=== PATIENT | female | born 2000 | race Caucasian/White ===

== ENCOUNTER → 2023-10-17 15:01 | Outpatient (CLI) | payer OTHER, SELFPAY ==
--- NOTE | 2023-10-17 15:07 | DI.MRI.S_ITS ---
PROCEDURE: MR KNEE LT WO CON INDICATIONS: medial meniscus injury, mri for surgical planning TECHNIQUE: Noncontrast sagittal PD fast spin echo and T2 fast spin echo with fat saturation, sagittal 3-D FLASH with fat saturation; coronal T1 spin echo and PD fast spin echo with fat saturation, and axial PD fast spin echo with fat saturation through the knee. COMPARISON: None. FINDINGS: Image quality: Excellent. Menisci: There is horizontal tear of the free edge of the body of the lateral meniscus. The medial meniscus demonstrates normal morphology and internal signal. The meniscal root ligaments appear intact. Cruciate ligaments: The anterior cruciate ligament is torn. The posterior cruciate ligament is intact. Medial structures: There is grade II sprain of medial collateral ligament. The semimembranosus tendon insertions and meniscocapsular junction appear intact. Visualized portions of the pes anserinus tendons appear normal. No abnormal bursal fluid. Lateral structures: There is low-grade partial tear of the lateral collateral ligament. Low-grade partial tear of the popliteus tendon. The biceps femoris tendon and theiIliotibial band are intact. Anterior structures: The quadriceps and patellar tendons appear intact. Patellar alignment is normal. No femoral trochlear dysplasia or ventral trochlear prominence. No edema in the infrapatellar fat pad. Bones and cartilage: No displaced fractures. There are bone contusions involving the anterior aspect of the lateral and medial femoral condyles and the posterior aspect of the lateral tibial plateau. There is also bone contusion in the fibular head. The cartilage of the medial and lateral femorotibial compartments, as well as the patellofemoral compartment, appears normal in thickness. Joint space: There is moderate knee joint effusion. No Galaviz's cyst. Normal appearing synovial plicae are incidentally noted. IMPRESSION: 1. ACL tear. 2. Grade II sprain of MCL. 3. Low-grade partial tear of LCL. 4. Low-grade partial tear of popliteus tendon. 5. Horizontal tear of the body of the lateral meniscus. 6. Bone contusions in distal femur and proximal tibia. 7. Moderate knee joint effusion. Dictated by: Kodi Rojas M.D. on 10/18/2023 at 9:45 Approved by: Kodi Rojas M.D. on 10/18/2023 at 10:07
== END ==
PROVIDERS: Referring Provider Nurse Practitioner Family; Visit Provider Nurse Practitioner Family
DX: S83.512A Sprain of anterior cruciate ligament of left knee, initial encounter (principal); S83.412A Sprain of medial collateral ligament of left knee, initial encounter; S83.282A Other tear of lateral meniscus, current injury, left knee, initial encounter; S83.422A Sprain of lateral collateral ligament of left knee, initial encounter; S76.812A Strain of other specified muscles, fascia and tendons at thigh level, left thigh, initial encounter; S80.02XA Contusion of left knee, initial encounter; M25.462 Effusion, left knee; M23.90 Unspecified internal derangement of unspecified knee; X58.XXXA Exposure to other specified factors, initial encounter
CPT/HCPCS: 73721

== ENCOUNTER 2023-11-12 06:20 | Day surgery (SDC) | payer OTHER, SELFPAY ==
[2023-11-02 13:46] VITALS: BMI 27.6
[2023-11-12] VITALS (8 sets, daily range): BP systolic 98–119; BP diastolic 51–81; PULSE 92–114; RESP 12–16; TEMP 36.3–36.8; O2SAT 95–98; BMI 27.6
[2023-11-12] MEDS: LACTATED RINGERS 1,000 ML 42 ML IV ×2 (07:07→09:02)
[2023-11-12] MEDS: ACETAMINOPHEN 325 MG TABLET 975 MG PO (07:07)
--- NOTE | 2023-11-12 07:36 | PM.PREOP ---
Pre-operative Note Interval Note History & Physical reviewed/Exam performed by Physician: Yes Changes to H&P: No
[2023-11-12] MEDS: TRANEXAMIC ACID 1,000 MG VIAL 1000 MG INJ (08:06)
[2023-11-12] MEDS: CEFAZOLIN 2 GM/100 ML PREMIX 100 ML IV (08:08)
--- NOTE | 2023-11-12 08:32 | SUR.OPER ---
Supine on padded OR bed, head on pillow, arms secured on padded arm boards at <90 degrees abduction, legs uncrossed, safety belt at thigh, tape over blanket over non op leg. operative leg draped free with nathe knee positioner and lateral hip compensation agent post
[2023-11-12] MEDS: BUPIVACAINE 0.25% (PF) 30 ML, EPINEPHrine 0.15 MG INJ (08:56)
[2023-11-12] MEDS: HYDROMORPHONE 1 MG INJ IV (10:05)
--- NOTE | 2023-11-12 10:16 | PM.OP.1 ---
Operative Date/Time/Diagnoses Date of procedure: 11/12/23 Time of procedure: 10:24 Pre-op diagnosis: Left ACL rupture Post-op diagnosis: same Procedure & Clinicians Procedure: Left ACL reconstruction with quadriceps autograft Same procedure as scheduled: Yes Indications: Indications: 23-year-old female with ACL rupture. We discussed operative and nonoperative management options. It was made clear that an ACL reconstruction will not prevent arthritis however it will allow her to perform cutting and pivoting activities if she is uncomfortable doing that at this point and can not cope with the absence of her ACL. Risks and benefits of surgery were discussed again including the risk of infection, damage to internal structures, bleeding, nerve injury, instability, need for revision surgery, blood clots, anesthesia and . No guarantees were made regarding outcomes. Patient expressed understanding and accepted these risks and wished to go forward with surgery and consent was signed. Surgeon: Fredrick Ordaz Armature Balancer: Nydia Reyes Anesthesia Type: General Operative Notes Findings: Findings: Exam under anesthesia: 2B Sin's with positive anterior drawer and positive visit shift Patellofemoral joint: Normal articulation and cartilage Medial and lateral gutters: No loose bodies noted Medial compartment: Medial meniscus is intact and medial tibial plateau with normal cartilage, medial femoral condyle also with normal cartilage Intercondylar notch: Intact PCL, incompetent ACL with empty lateral wall sign Lateral compartment: Lateral meniscus with a nearly healed vertical tear, lateral tibial plateau with normal cartilage, lateral femoral condyle also was normal cartilage Closure Type: primary Specimen(s): none sent Prosthetic devices, grafts, tissues, transplants, or devices: Fiber tape Tight rope button x2 with button corking machine operator, SwiveLock x1 Estimated Blood Loss (mL): 10 Blood products transfused: none Tourniquet time (min): 85 Procedure in detail: Description of operation: Patient was identified in the preoperative area. The correct left knee was marked with my initials. The patient was then brought into the operating room. A surgical pause was confirmed in the correct site of surgery was again identified. The patient was given perioperative IV antibiotics followed by induction of general anesthesia. A tourniquet was applied to the upper thigh. The lower extremity was then prepped and draped in a standard sterile fashion. After exam under anesthesia revealed an ACL insufficiency, the decision was made to proceed with ACL reconstruction. The leg was exsanguinated with an Esmarch bandage and the tourniquet was inflated to 250 mm hg. A longitudinal incision was made over the quad tendon, about 2-1/2 cm starting at the proximal pole of the patella. The quadriceps tendon was elevated off of the patella, and a FiberLoop was used to tag the end of the tendon. This was then placed through a a size 10 quad pro harvester. This was used to obtain a 70 mm graft that was eventually shaped to 65. The tendon was noted to be partial thickness, and thus quad tendon repair was not necessary. This was taken to the back table and prepared. A separate anterolateral portal was made. An anterior medial portal was also made outside in. Due to synovitis and the need to obtain full extension, we decided to perform extensive debridement of multiple compartments. Using a 4.0 mm shaver Synovectomy of multiple compartments was performed including the fat pad into the lateral medial and patellofemoral compartment to allow for full extension and visualization. There was a complete tear of the functional fibers of the anterior cruciate ligament. The remnant of the ligament was debrided. No notchplasty was necessary. Femoral flip cutting guide was then placed through the lateral portal. Once appropriate position was determined, this was drilled, flipped and back drilled to a tunnel length of about 30 mm. A passing suture was then passed using the fiber stick. Next, the tibial insertion point was identified, and a tibial guide was used with a painter tumbling barrel. A small incision was made medial to the tibial tubercle. This was used in a similar fashion and a 40 mm tunnel was obtained. Tunnel edges were cleared off. Passing sutures were placed through both tunnels. The graft was then passed, and the femoral tunnel was pulled up to about 20 mm leaving 20 mm in the tibial tunnel. The arthroscope was removed, the leg was placed into extension and the tibial side was then tensioned. Final tightening was done on the femoral side. The arthroscope was reinserted and it was noted that there was no impingement of the graft on the femoral notch and the graft had good tension. Arthroscope was then removed and a Sin's test demonstrated good tension with firm endpoint, and no pivot. Fiber tapes accompanying the graft were then placed into a separate SwiveLock just distal to the tibial tunnel for an internal brace. Assisting participation: This operation could not have been safely performed (without compromising the technical results or length of the procedure) without the assistance of a skilled surgical asst. The surgical asst was medically necessary for proper positioning, retraction and manipulation of instruments, proper exposure, graft prep, and manipulation of tissue. Complications: none Post-operative Condition: stable Disposition: PACU Plan for aftercare: Postop: Brace to bear remain locked for 2 days and extension, and then unlocked. He will remain on total of 4 weeks. Dressings may come off after 3 days to shower. Ensure that the incision sites are completely dry before replacing new dressings for 2 more days. Five days from surgery, dressings may come off completely and remain open to the air to dry. Crutches as necessary for balance for the 1st 2 weeks.
[2023-11-12] MEDS: OXYCODONE IR 5 MG TABLET PO (10:21)
[2023-11-12] MEDS: ONDANSETRON 4 MG/2 ML INJ IV (10:42)
== END 2023-11-12 11:18 | disposition home or self-care (01) ==
PROVIDERS: Referring Provider Orthopaedic Surgery; Visit Provider Orthopaedic Surgery
PROC: 0MRP47Z Replacement of Left Knee Bursa and Ligament with Autologous Tissue Substitute, Percutaneous Endoscopic Approach (ICD-10-PCS; CPT 29888; principal; 2023-11-12 07:45)
DX: S83.512A Sprain of anterior cruciate ligament of left knee, initial encounter (principal); M65.9 Synovitis and tenosynovitis, unspecified; Y93.23 Activity, snow (alpine) (downhill) skiing, snowboarding, sledding, tobogganing and snow tubing; G89.18 Other acute postprocedural pain
CPT/HCPCS: 29888; 29876; 64450; 81025; C1776; J0171; J0690; J1100; J1170; J1885; J2250; J2405; J2704; J3010

== ENCOUNTER → 2024-12-07 15:34 | Outpatient (CLI) | payer OTHER, SELFPAY ==
--- NOTE | 2024-12-07 15:36 | DI.US.S_ITS ---
PROCEDURE: US PELVIC COMPLETE INDICATIONS: Abnormal uterine bleeding TECHNIQUE: Real-time scanning was performed of the pelvic organs, with image documentation. Additional endovaginal scanning was necessary due to incomplete visualization of the adnexal and endometrial structures by transabdominal scanning. COMPARISON: None. FINDINGS: Uterus: Uterus is anteverted and normal in size at 6.7 x 3.9 x 3.3 cm. The myometrium is homogeneous. The endometrium measures 3.6 mm combined thickness. Ovaries: The right ovary measures 4.5 x 2.2 x 2.6 cm, with a calculated ovarian volume of 13.2 cc. The left ovary measures 3.5 x 3.6 x 1.6 cm, with a calculated ovarian volume of 10.4 cc. The ovaries have a normal sonographic appearance. Greater than 12 small follicles can be seen in each ovary. No adnexal masses are seen. Other: No pathologic free abdominal or pelvic fluid. IMPRESSION: Polycystic appearance of the ovaries bilaterally. Recommend correlation with clinical and laboratory findings to diagnose or exclude PCOS. Approved by: Kem Tony M.D. on 12/08/2024 at 15:18
== END ==
LOC: US 15:36
PROVIDERS: PCP Family Medicine; Referring Provider Family Medicine; Visit Provider Family Medicine
DX: N93.9 Abnormal uterine and vaginal bleeding, unspecified (principal)
CPT/HCPCS: 76856

== ENCOUNTER → 2024-12-12 08:56 | Outpatient (CLI) | payer OTHER, SELFPAY ==
[2024-12-12 10:12] LABS: Add Manual Diff / Slide Review NO; Basophils Absolute Auto 0 /uL (0-100); Basophils Percent Auto 0.7 % (0-2); Eosinophils Absolute Auto 200 /uL (0-450); Eosinophils Percent Auto 3.3 % (2-4); Hematocrit 39.7 % (36-46); Hemoglobin 13.4 g/dL (12.0-16.0); Lymphocytes Absolute Auto 2100 /uL (1100-4500); Lymphocytes Percent Auto 35.5 % (25-40); Mean Corpuscular HGB Conc 33.8 % (30-36); Mean Corpuscular Hemoglobin 28.8 PG (26-34); Mean Corpuscular Volume 85.2 fL (80-100); Monocytes Absolute Auto 600 /uL (0-900); Monocytes Percent Auto 10.6 % (3-14); Neutrophils Absolute Auto 3000 /uL (1500-7000); Neutrophils Percent Auto 49.9 % (50-75); Platelet Count 299 X10^3/uL (150-400); Red Blood Cell Count 4.65 X10^6/uL (4.0-5.2); Red Cell Distribution Width 13.6 % (11.6-14.8)
[2024-12-12 10:37] LABS: Hemoglobin A1C% w Est Avg Glu 4.9 % (4.0-6.0)
[2024-12-12 10:46] LABS: Alanine Aminotransferase 33 IU/L (<35); Albumin 4.7 g/dL (3.5-5.0); Albumin Globulin Ratio 1.5 (1.0-2.8); Alkaline Phosphatase 52 U/L (38-126); Aspartate Aminotransferase 30 IU/L (14-36); BUN Creatinine Ratio 20.6 (6-22); Bilirubin Total 0.5 mg/dL (0.2-1.3); Blood Urea Nitrogen 13 mg/dL (7-17); Calcium 9.6 mg/dL (8.4-10.2); Carbon Dioxide 25 mmol/L (22-32); Chloride 103 mmol/L (98-107); Cholesterol 232 mg/dL (140-199); Estimated Glomerular Filt Rate > 60 mL/min (>60); Globulin 3.2 g/dL (1.7-4.1); Glucose 83 mg/dL (70-99); HDL Cholesterol 54 mg/dL (40-60); HEMOLYSIS < 15 (0-50); LDL Cholesterol Calculated 152 mg/dL (<100); Potassium 4.4 mmol/L (3.4-5.1); Sodium 138 mmol/L (137-145); Total Protein 7.9 g/dL (6.3-8.2); Triglycerides 132 mg/dL (35-150)
[2024-12-12 11:00] LABS: Follicle Stimulating Hormone 4.87 mIU/mL; Luteinizing Hormone 13.1 mIU/mL; Vitamin D 25 Hydroxy (D3) 44.8 ng/mL (30.0-100.0)
[2024-12-12 11:20] LABS: Ferritin 46 ng/mL (6-137)
[2024-12-12 11:21] LABS: TSH w/ Reflex to FT4 3.65 uIU/mL (0.47-4.68)
[2024-12-12 11:56] LABS: Folate 11.8 ng/mL (2.76-20.0); Vitamin B12 371 pg/mL (239-931)
== END ==
PROVIDERS: PCP Family Medicine; Referring Provider Family Medicine; Visit Provider Family Medicine
DX: N93.9 Abnormal uterine and vaginal bleeding, unspecified (principal); E04.1 Nontoxic single thyroid nodule; E06.3 Autoimmune thyroiditis; R53.83 Other fatigue; Z84.2 Family history of other diseases of the genitourinary system; R63.5 Abnormal weight gain
CPT/HCPCS: 36415; 80053; 80061; 82306; 82607; 82728; 82746; 83001; 83002; 83036; 84146; 84402; 84443; 85025; 86900; 86901

== ENCOUNTER → 2025-02-01 14:52 | Outpatient (CLI) | payer OTHER, SELFPAY ==
--- NOTE | 2025-02-15 12:16 | DIET.OUTPTC ---
Dietary Outpatient Consult Consult Date:02/01/25 Assessment:? 24 y F referred to dietitian for E66.3, overweight. Pt recently dx with PCOS. Made dietary changes for 3 months now and experienced some improvement in cycle. Wanting to review dietary info for this. Has trialled gluten free and dairy free dietary patterns with these diet changes. GI symptoms: denies D/C/V/N or allergies/intolerances Diet Recall: 7am B- smoothie with protein powder, pb, flaxseed, honey/cinnamon, oatmilk, banana OR overnight oats w fruit 11am- L- leftovers or salad packed with vegs and protein source 5pm D- grilled meat, veg, salad, rice/quinoa cooks with oil 7-8pm square of chocolate + pb multivitamin Fluids: 60 oz water, kombucha for probiotics, 1 coffee iced with milk in morning Ht:?5 ft 5 in? Wt:?167 lb? BMI:?27.8? Pertinent Labs:TC 232, LDL 152 on 12/12/24 Nutrition Diagnosis:? Altered nutrition related lab values (cholesterol and LDL) r/t previous dietary patterns higher in saturated fats aeb TC 232, LDL 152 on 12/12/24 Interventions:? Discussed and provided appropriate resources on the following: -Anti-inflammatory dietary patterns like Mediterranean and components, pt has already made changes towards this pattern -Adequate soluble fiber intake, list of foods high in soluble fibers (again, pt has already added in- oats/flaxseed/vegs in salad/extra veg source at dinner) -Reducing saturated fats and foods high in saturated fats, no significant saturated fat sources in current dietary patterns -Educ on label reading -Lab values and correlation with nutrition -Physical activity Goals: -Continue current changes, unless intolerant/allergy to gluten or dairy, no need to avoid r/t PCOS -Resistance exercises 2x/wk -Monitor TC and LDL at next lipid panel EER:? 28 g fiber daily Monitoring/Evaluations:? F/u PRN, pt has already made dietary changes in line with what was discussed today and feels confident in these. Electronically Signed by: Genesis Sal Clinical Dietitian [address] [id number]
== END ==
LOC: DIET 14:52
PROVIDERS: PCP Family Medicine
DX: E66.3 Overweight (principal); E28.2 Polycystic ovarian syndrome; Z71.3 Dietary counseling and surveillance; Z68.27 Body mass index [BMI] 27.0-27.9, adult
CPT/HCPCS: 97802

== ENCOUNTER → 2025-05-22 08:36 | Outpatient (CLI) | payer OTHER, SELFPAY ==
[2025-05-22 09:52] LABS: Alanine Aminotransferase 54 IU/L (<35); Albumin 4.6 g/dL (3.5-5.0); Albumin Globulin Ratio 1.4 (1.0-2.8); Alkaline Phosphatase 54 U/L (38-126); Blood Urea Nitrogen 9 mg/dL (7-17); Calcium 9.6 mg/dL (8.4-10.2); Carbon Dioxide 28 mmol/L (22-32); Chloride 104 mmol/L (98-107); Cholesterol 222 mg/dL (140-199); Estimated Glomerular Filt Rate > 60 mL/min (>60); Globulin 3.3 g/dL (1.7-4.1); Glucose 96 mg/dL (70-99); HDL Cholesterol 54 mg/dL (40-60); HEMOLYSIS < 15 (0-50); Potassium 4.4 mmol/L (3.4-5.1); Sodium 138 mmol/L (137-145); Total Protein 7.9 g/dL (6.3-8.2); Triglycerides 121 mg/dL (35-150)
[2025-05-22 10:21] LABS: TSH w/ Reflex to FT4 3.38 uIU/mL (0.47-4.68)
[2025-05-22 10:24] LABS: Ferritin 64 ng/mL (6-137)
== END ==
PROVIDERS: PCP Family Medicine; Referring Provider Family Medicine; Visit Provider Family Medicine
DX: E28.2 Polycystic ovarian syndrome (principal); R79.89 Other specified abnormal findings of blood chemistry; E06.3 Autoimmune thyroiditis; E78.00 Pure hypercholesterolemia, unspecified
CPT/HCPCS: 36415; 80053; 80061; 82728; 84443

== ENCOUNTER → 2025-06-05 07:42 | Outpatient (CLI) | payer OTHER, SELFPAY ==
--- NOTE | 2025-06-05 07:43 | DI.US.S_ITS ---
PROCEDURE: US THYROID
--- NOTE | 2025-06-05 07:55 | DI.US.S_ITS ---
PROCEDURE: US ABDOMEN LIMITED
== END ==
LOC: US 07:43
PROVIDERS: PCP Family Medicine; Referring Provider Family Medicine; Visit Provider Family Medicine
DX: E04.1 Nontoxic single thyroid nodule (principal); E06.3 Autoimmune thyroiditis; R79.89 Other specified abnormal findings of blood chemistry; R53.83 Other fatigue
CPT/HCPCS: 76536; 76705

== ENCOUNTER → 2025-07-25 08:07 | Outpatient (CLI) | payer OTHER, SELFPAY ==
[2025-07-25 09:56] LABS: Alanine Aminotransferase 41 IU/L (<35); Albumin 4.9 g/dL (3.5-5.0); Albumin Globulin Ratio 1.5 (1.0-2.8); Alkaline Phosphatase 53 U/L (38-126); Blood Urea Nitrogen 10 mg/dL (7-17); Calcium 9.2 mg/dL (8.4-10.2); Carbon Dioxide 27 mmol/L (22-32); Chloride 104 mmol/L (98-107); Estimated Glomerular Filt Rate > 60 mL/min (>60); Globulin 3.2 g/dL (1.7-4.1); Glucose 84 mg/dL (70-99); HEMOLYSIS < 15 (0-50); Potassium 4.2 mmol/L (3.4-5.1); Sodium 139 mmol/L (137-145); Total Protein 8.1 g/dL (6.3-8.2)
[2025-07-25 10:25] LABS: TSH w/ Reflex to FT4 4.36 uIU/mL (0.47-4.68)
== END ==
PROVIDERS: PCP Family Medicine; Referring Provider Family Medicine; Visit Provider Family Medicine
DX: R79.89 Other specified abnormal findings of blood chemistry (principal); R53.83 Other fatigue; E04.1 Nontoxic single thyroid nodule; E06.3 Autoimmune thyroiditis
CPT/HCPCS: 36415; 80053; 84443